=== PATIENT | female | born 1995 | race Caucasian/White ===

== ENCOUNTER 2019-04-22 08:29 | Emergency (ER) | payer OTHER, MEDICAID ==
[2019-04-22] MEDS ORDERED: ALBUTEROL 0.5% (NEB) 2.5 MG/0.5 ML AMP INH (08:56)
[2019-04-22] MEDS: LEVALBUTEROL (NEB) 1.25 MG/0.5 ML AMP INH (09:06)
[2019-04-22] MEDS: METHYLPREDNISOLONE 125 MG INJ IV (09:18)
[2019-04-22] MEDS: CEFTRIAXONE 1 GM/50 ML (PMX) 50 ML IVPB (10:13)
[2019-04-22 13:24] LABS: ADD MAN DIFF? NO
[2019-04-22 13:29] LABS: WHITE BLOOD COUNT 12.7 10^3/ul (4.8-10.8)
[2019-04-22 13:29] LABS: BASOPHILS % 0.2 % (0.0-2.0); EOSINOPHILS # 0.1 10^3/ul (0.0-0.5); EOSINOPHILS % 0.9 % (0.0-7.0); HEMOGLOBIN 12.3 g/dl (12.0-16.0); LYMPHOCYTES # 0.9 10^3/ul (0.8-2.9); LYMPHOCYTES % 7.1 % (15.0-51.0); MEAN CORPUSCULAR HEMOGLOBIN 27.8 pg (29.0-33.0); MEAN CORPUSCULAR HGB CONC 32.4 g/dl (32.0-37.0); MEAN PLATELET VOLUME 10.4 fl (7.4-10.4); MONOCYTE # 0.1 10^3/ul (0.3-0.9); NEUTROPHIL # 11.5 10^3/ul (1.6-7.5); NEUTROPHILS % 90.2 % (39.0-77.0); PLATELET COUNT 447 10^3/UL (140-415); RED BLOOD COUNT 4.42 10^6/ul (4.20-5.40); RED CELL DISTRIBUTION WIDTH 13.3 % (11.5-14.5)
[2019-04-22] MEDS ORDERED: ACETAMINOPHEN 325 MG TAB PO (13:30)
[2019-04-22] MEDS ORDERED: ONDANSETRON 4 MG INJ IV (13:30)
[2019-04-22] MEDS: PHENOBARBITAL 32.4 MG TAB PO (13:32)
[2019-04-22 13:51] LABS: ALANINE AMINOTRANSFERASE 20 IU/L (13-69); ALBUMIN 3.3 g/dl (3.3-4.9); ALKALINE PHOSPHATASE 63 IU/L (42-121); ANION GAP 7 (5-13); ASPARTATE AMINO TRANSFERASE 18 IU/L (15-46); BILIRUBIN,INDIRECT 0.3 mg/dl (0-1.1); BILIRUBIN,TOTAL 0.3 mg/dl (0.2-1.3); BLOOD UREA NITROGEN 5 mg/dl (7-20); CALCIUM 9.4 mg/dl (8.4-10.2); CARBON DIOXIDE 30 mmol/L (21-31); CHLORIDE 101 mmol/L (97-110); CREATININE 0.62 mg/dl (0.44-1.00); Estimated GFR > 60 mL/min (>60); GLUCOSE 139 mg/dl (70-220); POTASSIUM 4.4 mmol/L (3.5-5.1); SODIUM 138 mmol/L (135-144); TOTAL PROTEIN 6.9 g/dl (6.1-8.1)
[2019-04-22 13:52] LABS: ALBUMIN/GLOBULIN RATIO 0.91
[2019-04-22] MEDS: ALBUTEROL/IPRATROPIUM (NEB) 3 ML AMP HHN (16:34)
== END 2019-04-22 17:27 | disposition home or self-care (01) ==
LOC: E/R 08:29
DX: J45.41 Moderate persistent asthma with (acute) exacerbation (principal); R09.02 Hypoxemia
CPT/HCPCS: 71045; 80053; 85025; 94640; 94644; 94664; 96374; 96375; 99284-25